=== PATIENT | male | born 1945 | race Caucasian/White ===

== ENCOUNTER 2018-12-31 11:49 | Day surgery (SDC) | payer MEDICARE, BC ==
[2018-12-31] MEDS ORDERED: LIDOCAINE 2% MDV (20MG/ML) 20ML VIAL IV ONE (11:50)
[2018-12-31] MEDS ORDERED: PROPOFOL 10 MG/ML VIAL IV ONE (11:50)
--- NOTE | 2019-01-01 12:50 | Operative Note ---
OPERATION: 1. ESOPHAGOGASTRODUODENOSCOPY with biopsy. 2. COLONOSCOPY with cold forceps polypectomy. PREOPERATIVE DIAGNOSES: 1. GERD. 2. Questionable dysphagia. 3. Personal history of colon polyps. POSTOPERATIVE DIAGNOSES: 1. Irregular Z line, rule out short-segment Jones's. 2. Transverse colon polyp. 3. Colonic diverticulosis, mild. PREPARATION QUALITY: Good to excellent. ESTIMATED BLOOD LOSS: Minimal. SPECIMENS: GE junction and transverse colon. COMPLICATIONS: None apparent. PROCEDURE: After informed consent was obtained from the patient, he was placed in the left lateral decubitus position in the endoscopy suite, sedated and monitored by the department of anesthesia. A well-lubricated [id number] gastroscope was placed in the posterior oropharynx under direct visualization and passed to the proximal esophagus. The endoscope was advanced through the proximal, mid, and distal esophagus. The GE junction was slightly irregular. No ulcers, erosions, strictures, varices, or mass lesions were seen. The gastric body, antrum, pylorus, duodenal bulb and sweep were unremarkable. J-turn views of the proximal stomach were unremarkable. The endoscope was straightened. GE junction was biopsied. The endoscope was removed from the patient with no new findings noted. Digital rectal exam was unrevealing. A well-lubricated [id number] colonoscope was inserted into the rectum and advanced to the cecum. Preparation quality was good to excellent. The cecum, cecal bulb, ileocecal valve, appendiceal orifice, and ascending colon were unremarkable. There was a diminutive transverse colon polyp removed with a cold forceps. The remainder of the transverse colon and descending colon were unrevealing. The sigmoid colon demonstrated a few scattered diverticula but no polyps, mass lesions, or inflammation was seen. It should be noted the ascending colon had a few diverticula noted as well. The rectum was unremarkable in forward and J-turn views. The endoscope was straightened, the rectal ampulla deflated, and the endoscope was removed. RECOMMENDATIONS: I would suggest the patient continue his current medical program and follow a high-fiber diet. He will require repeat colonoscopy in 5 years. As always, thank you for allowing me to participate in the healthcare of your patients. CHERY
== END 2018-12-31 13:55 | disposition home or self-care (01) ==
LOC: HOP 11:49
PROVIDERS: ATTEND Internal Medicine Gastroenterology
DX: Z12.11 Encounter for screening for malignant neoplasm of colon (principal); Z86.010 Personal history of colon polyps; D12.3 Benign neoplasm of transverse colon; K57.30 Diverticulosis of large intestine without perforation or abscess without bleeding; K21.9 Gastro-esophageal reflux disease without esophagitis; D50.9 Iron deficiency anemia, unspecified; K21.0 Gastro-esophageal reflux disease with esophagitis; K31.89 Other diseases of stomach and duodenum; E11.9 Type 2 diabetes mellitus without complications; E78.00 Pure hypercholesterolemia, unspecified; I10 Essential (primary) hypertension; E03.9 Hypothyroidism, unspecified; M19.90 Unspecified osteoarthritis, unspecified site